=== PATIENT | male | born 2000 | race Caucasian/White ===

== ENCOUNTER 2024-07-26 23:18 | Emergency (ER) | payer OTHER ==
[~2024-07-26] VITALS: Ht 175.3 cm; Wt 73.9 kg
[2024-07-26 23:20] VITALS: BP 128/74; PULSE 98; RESP 16; TEMP 97.4; O2SAT 99
[2024-07-26] MEDS: IBUPROFEN 600 MG TAB PO ONE (23:50)
--- NOTE | 2024-07-27 00:03 | NUR ---
24YR OLD MALE BIB SELF C/O L FOOT/ANKLE PAIN. PT STATES HE WAS BOXING AND HEAR "POP" 06/05 PAIN NON RADIATING. +ROM +CAP REFILL. NO DEFORMITIY NOTED. MIN SWELLING. NKDA NO MED HX
--- NOTE | 2024-07-27 00:52 | NUR ---
Patient discharged with v/s stable. Written and verbal after care instructions given and explained. Patient verbalized understanding. Ambulatory with steady gait. All questions addressed prior to discharge. Advised to follow up with PMD.
== END 2024-07-27 00:48 | disposition home or self-care (01) ==
LOC: MED 23:18
DX: S93.402A Sprain of unspecified ligament of left ankle, initial encounter (principal); W18.39XA Other fall on same level, initial encounter; Y93.89 Activity, other specified; Y92.89 Other specified places as the place of occurrence of the external cause; Y99.8 Other external cause status
CPT/HCPCS: 73610; 73630; 99284; Q0092